=== PATIENT | male | born 1970 | race Caucasian/White ===

== ENCOUNTER 2022-10-19 08:54 | Outpatient (CLI) | payer OTHER, SELFPAY ==
[2022-10-19 15:13] LABS: Albumin* 4.5 g/dL (3.3-5.0); Chloride* 103 mmol/L (96-114)
[2022-10-19 15:14] LABS: Potassium* 4.8 mmol/L (3.6-5.1); Sodium* 137 mmol/L (135-149)
[2022-10-19 15:16] LABS: Alkaline Phosphatase* 39 U/L (40-150); Aspartate Amino Transferase* 26 U/L (12-35); Bilirubin Total* 1.5 mg/dL (0.1-1.5); Blood Urea Nitrogen* 18 mg/dL (7-30); Carbon Dioxide* 30 mmol/L (20-32); Cholesterol* 279 mg/dL (90-199); Creatinine* 0.8 mg/dL (0.5-1.5); Estimated Glomerular Filt Rate 106 ml/min; Glucose* 93 mg/dL (60-115); Total Protein* 7.8 g/dL (6.0-8.3); Triglycerides* 70 mg/dL (40-149)
[2022-10-19 15:17] LABS: Alanine Aminotransferase* 27 U/L (4-50); Calcium* 9.4 mg/dL (8.4-10.6); HDL Cholesterol* 68 mg/dL (>=40); LDL Cholesterol Calculated 197 mg/dL (<100)
[2022-10-19 15:30] LABS: Vitamin D 25 Hydroxy* 29 ng/mL (30-80)
[2022-10-19 15:44] LABS: TSH With Reflex to FT4* 0.987 uIU/mL (0.270-4.200)
[2022-10-21 00:18] LABS: Immunoglobulin A 275 mg/dL (68-408)
[2022-10-21 08:41] LABS: Tissue Transglutaminase IgA <2 U/mL (0-3)
[2022-10-23 14:39] LABS: Sex Hormone Binding Globulin 52 nmol/L (19-76); Testosterone, Free LC-MS/MS 99.6 pg/mL (47.0-244.0); Testosterone, LC-MS/MS 663 ng/dL (300-890)
== END 2022-10-19 08:55 | disposition home or self-care (01) ==
PROVIDERS: PCP Family Medicine; Visit Provider Family Medicine
DX: F33.9 Major depressive disorder, recurrent, unspecified (principal); R19.7 Diarrhea, unspecified; R53.82 Chronic fatigue, unspecified; R53.83 Other fatigue
CPT/HCPCS: 80053; 80061; 82306; 82784; 84270; 84402; 84403; 84443; 86364

== ENCOUNTER 2023-03-20 08:03 | Outpatient (CLI) | payer OTHER, SELFPAY | END 2023-03-20 08:04 | disposition home or self-care (01) | LOC: NFLDREF 16:13 | PROVIDERS: PCP Family Medicine; Referring Provider Family Medicine; Visit Provider Family Medicine | DX: E55.9 Vitamin D deficiency, unspecified (principal); E78.5 Hyperlipidemia, unspecified | CPT/HCPCS: 80053; 80061; 82306 ==

== ENCOUNTER 2024-07-02 08:23 | Outpatient (CLI) | payer OTHER, SELFPAY | END 2024-07-02 08:24 | disposition home or self-care (01) | LOC: NFLDREF 07-04 12:56 | PROVIDERS: PCP Physician Assistant Medical; Referring Provider Physician Assistant Medical; Visit Provider Physician Assistant Medical | DX: Z00.00 Encounter for general adult medical examination without abnormal findings (principal); E55.9 Vitamin D deficiency, unspecified; E78.5 Hyperlipidemia, unspecified; F33.9 Major depressive disorder, recurrent, unspecified; G25.0 Essential tremor; R10.9 Unspecified abdominal pain | CPT/HCPCS: 80053; 80061; 82306; 84443; G0103 ==

== ENCOUNTER 2024-07-14 07:38 | Outpatient (CLI) | payer OTHER, SELFPAY ==
--- NOTE | 2024-07-14 08:00 | CRLHL7_ITS ---
For Patients: As a result of the Century Cures Act, medical imaging exams and procedure reports are released immediately into your electronic medical record. You may view this report before your referring provider. If you have questions, please contact your health care provider. INDICATION: Left lower quadrant pain. History of stones. TECHNIQUE: CT abdomen and pelvis without contrast. COMPARISON: None. FINDINGS: Lower chest: Unremarkable. Liver: Normal in size and attenuation. No suspicious masses. Gallbladder and bile ducts: No stones or inflammation. No biliary dilatation. Pancreas: Unremarkable. No mass or inflammation. Spleen: Normal in size. No masses. Adrenal glands: Normal in size. No nodules. Kidneys: Multiple nonobstructing stones in the lower pole of the left kidney. The largest stone measures 6 millimeters. There is a nearby 4 millimeter stone and an adjacent punctate stone. There is also a 3 millimeter nonobstructing stone in the mid/upper left kidney. No obstructing stones. No right renal calculi. 4.2 centimeter left renal cyst. Ureters normal in caliber. GI tract: Unremarkable. Normal in caliber. No sign of mass or inflammation. Normal appendix. Vasculature: Abdominal aorta is normal in caliber. Scattered atherosclerosis Lymph nodes: No lymphadenopathy. Peritoneum/Abdominal Wall: Unremarkable. No sign of mass or infiltration. No free air or significant free fluid. Pelvis: Moderate prostatomegaly. Bones: Unremarkable for age. IMPRESSION: 1. Left nephrolithiasis. No obstructing stones or hydronephrosis. 2. Prostatomegaly. Please note that all CT scans at this facility use dose modulation, iterative reconstruction, and/or weight-based dosing when appropriate to reduce radiation dose to as low as reasonably achievable. Dictated by Reagan Jean MD @ 07/14/2024 10:37:23 AM (Electronically Signed)
== END 2024-07-14 07:39 | disposition home or self-care (01) ==
LOC: CT 07:40
PROVIDERS: PCP Physician Assistant Medical; Visit Provider Physician Assistant Medical
DX: R10.32 Left lower quadrant pain (principal); N20.0 Calculus of kidney; N40.0 Benign prostatic hyperplasia without lower urinary tract symptoms
CPT/HCPCS: 74176